=== PATIENT | female | born 1970 | race Caucasian/White ===

== ENCOUNTER 2024-02-13 09:23 | Emergency (ER) | payer BC, SELFPAY ==
[2024-02-13 09:23] VITALS: BP 149/81; PULSE 97; RESP 14; TEMP 36.3; O2SAT 98
[2024-02-13 09:26] VITALS: BMI 40.2
--- NOTE | 2024-02-13 10:14 | EX.ED.GENINJ ---
HPI History of Present Illness Chief Complaint: Laceration PFSH PFS Home Medications ?Medication ?Instructions ?Recorded ?Last Taken ?Type sulfamethoxazole 800 1 tab PO BID #14 tabs 02/13/24 Unknown Rx mg-trimethoprim 160 mg tablet (Bactrim DS) Allergy/AdvReac Type Severity Reaction Status Date / Time No Known Allergies Allergy Verified 02/13/24 09:24 Social History Smoking Status: Never smoker EXAM Physical Exam Const Vital Signs: 02/13/24 09:23 02/13/24 11:20 02/13/24 12:47 Temperature 97.3 F L 97.8 F Temperature Source Temporal Pulse Rate 97 81 72 Respiratory Rate 14 16 16 Blood Pressure 149/81 H 158/78 H 138/78 H Blood Pressure Mean 103 104 98 Pulse Ox 98 98 99 Oxygen Delivery Method Room Air [place] [facility] [place] Medical decision making narrative: HISTORY OF PRESENT ILLNESS: 53-year-old female presents with concern for left big toe injury. Notes she impaled left big toe with gardening. This occured just [employer]. Last tetanus was not within the last 5 years. REVIEW OF SYSTEMS: Pertinent positives: Left toe injury Pertinent negatives: Numbness, tingling, loss of sensation PHYSICAL EXAM: Nursing triage notes reviewed, Vital signs reviewed Constitutional: please see mdm Extremities: No edema Neuro: Intact sensation L1-S1 dermatomal distributions. Intact 5/5 strength in hip flexion (T12-L3). Knee extension (L2-L4). Ankle dorsiflexion (L4-L5). Ankle plantar flexion (S1). Great toe extension (L5). 2+ patellar and Achilles DTRs. Skin: Abrasion/laceration noted to the plantar surface of the left first digit, no active bleeding, no obvious foreign body noted on exam, no obvious tenderness involvement. MEDICAL DECISION MAKING: Chief Complaint: Left toe pain External records reviewed: No documented tetanus immunization noted in the chart MDM Narrative: Patient was initially hemodynamically stable, afebrile and nontoxic-appearing. Exam with laceration to the plantar surface of the left first digit of the foot. I considered the following differential diagnosis: Laceration, foreign body, toe fracture ALL IMAGES (IF OBTAINED) HAVE BEEN PERSONALLY REVIEWED AND INTERPRETED BY MYSELF. X-ray of the patient's left toe (was read and reviewed by myself) shows no evidence of foreign body. Radiologist agrees my interpretation. The patient suffered lacerations to the left big toe On exam there was no evidence of foreign bodies. There was no evidence of neurovascular injury. Patient had a normal distal vascular exam, and had intact ROM and sensation. There was also no evidence of tendon injury, with normal distal full range of motion, flexion, extension, abduction, abduction. There is no evidence of local joint space involvement at this time. Wound care applied (irrigation and/or local cleansing solution). Laceration repair was then performed please see procedure note. The patient was given signs and symptoms warnings for infection, such as increasing pain, redness, swelling, associated heat, pus or fever. Patient was given instructions for timely follow-up for removal. Patient agreed with the plan of care Procedure: Laceration repair. The procedure was performed by myself. Indication: Wound repair Risks and benefits: risks, benefits and alternatives were discussed Consent: Consent was obtained. Wound Details: Proximally 2 cm superficial laceration to the plantar surface of the left first digit of the foot Anesthesia: Digital block with 1% lidocaine without epinephrine Wound prep: Patient was prepped and draped in the usual sterile fashion. Tetanus: Updated today Irrigation Solution: Saline Wound Preparation: Soaked in chlorhexidine and normal saline slurry The wound was explored to its base in a bloodless field. Procedure Description: Placed 11, 5-0 Chromic Gut sutures with close approximation Patient tolerated the procedure well with no immediate complications The patient and/or family, caregivers express understanding. The patient and/or family, caregivers agrees with the plan. Shared decision making: I will have a discussion with the patient and or visitors regarding risk/benefits of further testing or admission. They will be made aware of of the risk/benefits inherent in this decision they will be given the opportunity to voice understanding. Total critical care time today provided was at least 0 minutes. This excludes separately billable procedures. Critical care time (if documented) is secondary to the patient having high probability of clinically significant/life threatening deterioration in the patient's condition which required my urgent intervention. Impression: 1. Left toe pain 2. Left toe laceration Dispo: Discharge home This note was generated with [employer] dictation software. It may contain incorrect words, spelling, and punctuation that were not noted in review of the chart prior to signing. Radiography Diagnostic Testing: Clinical Impression(s) from Imaging Studies Toe X-Ray 02/13/24 10:40 IMPRESSION: Soft tissue swelling and laceration along the plantar aspect of the soft tissues of the great toe. Electronically Signed: Vinay Villafuerte MD at 11:05 EDT , Discharge Plan Triage Chief Complaint: Laceration ED Provider: Chandler Smith Dx/Rx/DC Orders Instructions: ED Laceration Extremity Prescriptions: New sulfamethoxazole-trimethoprim [Bactrim DS] 800-160 mg tablet 1 tab PO BID Qty: 14 0RF Primary Care Provider: Care Physician,No Primary Referrals: Pepito Mosley MD [Med Staff - Configuration Management Administrator] - Activity Restrictions/Additional Instructions: Thank you for trusting us with your care today! Please take Tylenol (2 pills, 650 mg), ibuprofen (2 pills, 400 mg) every 6 hours as needed for pain and fever control. Please return to the emergency department if your symptoms change or worsen. Please follow with your primary care physician for further outpatient evaluation and management. Print Language: [place] Citizen Disposition Disposition: Home, Self Care Discharge Date/Time: 02/13/24 12:47
--- NOTE | 2024-02-13 10:40 | RAD_ITS ---
STUDY: X-RAY LEFT FOOT, GREAT TOE REASON FOR EXAM: Female, 53 years old. Laceration/injury to the great toe. TECHNIQUE: 3 view(s) of the toe were obtained. COMPARISON: None. FINDINGS: Normal visualized metatarsus. Normal metatarsophalangeal (M.T.P) joint. Normal interphalangeal joints. Normal phalanges and interphalangeal joints. Soft tissue laceration and swelling is seen along the plantar aspect of the first toe. RAD/Toe(s) Min 2 Views IMPRESSION: Soft tissue swelling and laceration along the plantar aspect of the soft tissues of the great toe. Electronically Signed: Vinay Villafuerte MD at 11:05 EDT ,
[2024-02-13] MEDS: Ibuprofen 200 MG Tablet 400 MG PO (11:08)
[2024-02-13] MEDS: Diphth,Pertuss(Acell),Tet Vac 0.5 ML Vial IM (11:08)
[2024-02-13] MEDS: Smz/Tmp Ds Tablet 1 TABLET PO (11:08)
[2024-02-13 11:20] VITALS: BP 158/78; PULSE 81; RESP 16; O2SAT 98
[2024-02-13 12:47] VITALS: BP 138/78; PULSE 72; RESP 16; TEMP 36.6; O2SAT 99
== END 2024-02-13 12:47 | disposition home or self-care (01) ==
PROVIDERS: Emergency Provider Emergency Medicine; Visit Provider Emergency Medicine
DX: S91.112A Laceration without foreign body of left great toe without damage to nail, initial encounter (principal); Y93.H2 Activity, gardening and landscaping; X58.XXXA Exposure to other specified factors, initial encounter; Y92.89 Other specified places as the place of occurrence of the external cause; Z23 Encounter for immunization
CPT/HCPCS: 12001; 73660; 90471; 90715; 99283